=== PATIENT | male | born 1985 | race Caucasian/White ===

== ENCOUNTER → 2017-02-22 17:56 | Emergency (ER) | payer SELFPAY ==
[~2017-02-22 17:56] MED LIST: Ketorolac INJ* 30 MG/ML 1 ML VIAL IV PUSH ONE; Morphine INJ* 10 MG/ML 1 ML CARPUJECT IV ONE; NS 0.9% 1000 ML* 1,000 ML IV ONE; Ondansetron INJ* 2 MG/ML VIAL IV ONE
[2017-02-22 19:16] LABS: Hematocrit 44 % (42-52); Hemoglobin 15.7 g/dl (14.0-18.0); Mean Corpuscular HGB Conc 35 g/dl (31-36); Mean Corpuscular Hemoglobin 31 pg (27-31); Mean Corpuscular Volume 86 fL (80-94); Mean Platelet Volume 8 um3 (7.4-10.4); Red Blood Count 5.13 10^6/ul (4.0-5.4); Red Cell Distribution Width 12 % (10.5-15); White Blood Count 8.7 10^3/ul (3.5-10.8)
[2017-02-22 19:29] LABS: Albumin 4.9 g/dL (3.2-5.2); BUN/Creatinine Ratio 9.8 (8-20); C Reactive Protein 2.48 mg/L (< 5.00); Calcium 9.8 mg/dL (8.6-10.3); EGFR African American 98.3 (>60); EGFR Non-African American 76.5 (>60); Globulin 2.9 g/dL (2-4); Potassium 3.6 mmol/L (3.5-5.0); Total Bilirubin 0.9 mg/dL (0.2-1.0); Total Protein 7.8 g/dL (6.4-8.9)
--- NOTE | 2017-02-22 20:00 | RAD ---
INDICATION: 3 hours LEFT lower quadrant pain. COMPARISON: No relevant prior exams available on the [facility] [facility] [place]. TECHNIQUE: Multidetector CT images were obtained from the lung bases to the ischial tuberosities. Evaluation of the viscera is limited without IV contrast. Multiplanar reformation. REPORT: Unremarkable visualized inferior thorax. Diffuse decreased density of the liver consistent with fatty infiltration with focal sparing at the gallbladder fossa. No focal hepatic lesions evident within limits of noncontrast CT. Unremarkable CT appearance of the gallbladder, pancreas, spleen. Negative for CT abnormality of the upper GI or small bowel. While the appendix is not discretely visualized, there is no inflammatory change in the right lower quadrant or region of the tip of the cecum to suggest presence of an acute inflammatory process. Negative for CT abnormality of the colon. Negative for ascites, free air, hernias. Normal adrenal glands. Few small calyceal stones of the inferior pole of the RIGHT kidney measuring up to 2 mm. A few small calyceal stones of the LEFT kidney at the upper and mid pole measuring up to 3 mm. Mild LEFT hydronephrosis is traced to a 3 mm stone at the ureterovesicular junction. The urinary bladder is otherwise unremarkable. Unremarkable seminal vesicles. Negative for lymphadenopathy. Normal diameter abdominal aorta and iliac arteries. Physiologic distention of the IVC. Bilateral L5 spondylolysis without associated spondylolisthesis. Normal variant unfused anterior superior ring apophysis at L4. No suspicious focal osseous lesions. IMPRESSION: 1. Mild LEFT hydronephrosis is traced to a 3 mm ureterovesicular junction stone. Additional nonobstructing bilateral renal calyceal stones. 2. Fatty infiltration of the liver.
[2017-02-22 20:49] LABS: Urine Bacteria Absent (Absent); Urine Bilirubin Negative (Negative); Urine Glucose Negative (Negative); Urine Nitrite Negative (Negative)
--- NOTE | 2017-02-22 22:04 | ED ---
Donato Cain SooYoung, scribed for Kevin Marie MD on 02/22/17 at 1828 . Abdominal Pain/Male - HPI Summary HPI Summary: A 31 y/o M presents to ED with c/o sudden onset, L-sided abd pain onset approx 3 hours ago. Pain is radiating to L flank and is rated as 8 out of 10. Associated sx: chills, urinary retention. Denies n/v/d. Aggravating factors: sitting. Denies PMHx. Occ ETOH. Allergic to Augmentin. No PMHx: kidney stones. Surgeries: tonsillectomy, adnoidectomy, jaw surgery. - History of Current Complaint Chief Complaint: EDAbdPain Stated Complaint: ABD PAIN Time Seen by Provider: 02/22/17 18:14 Hx Obtained From: Patient, Family/Advertising Sales Agent - mother Onset/Duration: Sudden Onset, Lasting Hours, Still Present Timing: Constant Severity Initially: Severe Severity Currently: Severe Pain Intensity: 8 Pain Scale Used: 0-10 Numeric Location: Diffuse - L-side Radiates: Yes Radiates to: Flank - L Aggravating Factor(s): Other: - position, sitting Associated Signs And Symptoms: Positive: Urinary Symptoms - urinary retention, Other - pos: chills. Negative: Nausea, Vomiting, Diarrhea - Allergies/Home Medications Allergies/Adverse Reactions: Allergies Allergy/AdvReac Type Severity Reaction Status Date / Time Amoxicillin [From Augmentin] Allergy Unknown Verified 02/22/17 19:16 Reaction Details Clavulanic Acid Allergy Unknown Verified 02/22/17 19:16 [From Augmentin] Reaction Details PMH/Surg Hx/FS Hx/Imm Hx Previously Healthy: Yes History: Denies: Hx Kidney Stones Sensory History: Denies: Hx Legally Blind, Hx Deafness Opthamlomology History: Denies: Hx Legally Blind EENT History: Denies: Hx Deafness Infectious Disease History: No Infectious Disease History: Denies: Traveled Outside the [place] in Last 30 Days - Family History Known Family History: Positive: Other - Breast CA - Social History Occupation: Student Lives: With Family Alcohol Use: Occasionally Review of Systems Positive: Chills Positive: Abdominal Pain. Negative: Vomiting, Diarrhea, Nausea Positive: other - urinary retention All Other Systems Reviewed And Are Negative: Yes Physical Exam Triage Information Reviewed: Yes Vital Signs On Initial Exam: Initial Vitals Temp Pulse Resp BP Pulse Ox 96.9 F 81 18 152/96 99 02/22/17 18:09 02/22/17 18:09 02/22/17 18:09 02/22/17 18:09 02/22/17 18:09 Vital Signs Reviewed: Yes Appearance: Positive: Well-Appearing, Pain Distress Skin: Positive: Warm Head/Face: Positive: Normal Head/Face Inspection Eyes: Positive: EOMI Respiratory/Lung Sounds: Positive: Clear to Auscultation, Breath Sounds Present Cardiovascular: Positive: RRR. Negative: Murmur Abdomen Description: Positive: Nontender Musculoskeletal: Positive: Strength/ROM Intact Neurological: Positive: Sensory/Motor Intact, Alert, Oriented to Person Place, Time, CN Intact II-III Psychiatric: Positive: Normal Diagnostics - Vital Signs Vital Signs Temp Pulse Resp BP Pulse Ox 02/22/17 18:09 96.9 F 81 18 152/96 99 - Laboratory Result Diagrams: 02/22/17 19:00 02/22/17 19:00 Lab Statement: Any lab studies that have been ordered have been reviewed, and results considered in the medical decision making process. - CT ABD/PEL CT Interpretation: Positive (See Comments) - IMPRESSION: 1. Mild LEFT hydronephrosis is traced to a 3 mm ureterovesicular junction stone. Additional nonobstructing bilateral renal calyceal stones. 2. Fatty infiltration of the liver. ED physician has reviewed this radiology report and agrees. CT Interpretation Completed By: Radiologist Re-Evaluation - Re-Evaluation 1 Re-Evaluation Time: 20:22 Change: Improved Comment: Discussing CT results with pt. Waiting on UA. Pt is improved, but still having some abd pain. Second Eval Re-Evaluation Time: 21:32 Change: Improved Comment: pain free Abdominal Pain Fem Course/Dx - Course Course Of Treatment: A 31 y/o M presents to ED with c/o sudden onset, L-sided abd pain onset approx 3 hours ago. Pain is radiating to L flank and is rated as 8 out of 10. Associated sx: chills, urinary retention. Denies n/v/d. Aggravating factors: sitting. Denies PMHx. Occ ETOH. Allergic to Augmentin. No PMHx: kidney stones. Surgeries: tonsillectomy, adnoidectomy, jaw surgery. Pt given fluids, Zofran, Toradol and morphine in ED. UA results show 3+ blood, 3+ RBC, hyaline casts present, specific gravity 1.008. ABD/PEL CT shows " 1. Mild LEFT hydronephrosis is traced to a 3 mm ureterovesicular junction stone. Additional nonobstructing bilateral renal calyceal stones. 2. Fatty infiltration of the liver." - Diagnoses Provider Diagnoses: Renal calculus, left, Renal colic on left side Discharge - Discharge Plan Condition: Good Disposition: HOME Prescriptions: Ibuprofen TAB* [Motrin TAB* 600 MG] 600 mg PO Q6H PRN #20 tab PRN Reason: Pain oxyCODONE/Acetamin 5/325 MG* [Percocet 5/325 TAB*] 1 tab PO Q6H PRN #14 tab MDD 4 PRN Reason: Pain Patient Education Materials: Kidney Stones (ED), Renal Colic (ED), How to Strain Your Urine (ED), Hypertension (ED) Referrals: User,Conversion [Primary Care Provider] - Gomez Garcia MD [Medical Doctor] - 2 Days Vini Ulloa MD [Medical Doctor] - The documentation as recorded by the Donato duran SooYoung accurately reflects the service I personally performed and the decisions made by , Kevin Marie MD.
[2017-02-22 23:20] VITALS: BP 120/67
== END | disposition home or self-care (01) ==
LOC: ED 17:56
DX: R33.9 Retention of urine, unspecified (principal); R10.9 Unspecified abdominal pain; N20.0 Calculus of kidney; N23 Unspecified renal colic
CPT/HCPCS: 36415; 74176; 80053; 81003; 81015; 83605; 83690; 85025; 86140; 96374; 96375; 99283; J1885; J2270; J2405